=== PATIENT | female | born 1970 | race Caucasian/White ===

== ENCOUNTER 2017-03-03 16:54 | Inpatient (IN) | payer OTHER ==
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
[2017-03-03] MEDS ORDERED: DEXAMETHASONE 10 MG/ML VIAL IVP ONE (17:16)
[2017-03-03] MEDS ORDERED: ONDANSETRON 4 MG/2 ML VIAL IVP ONE ×2 (17:16→19:38)
[2017-03-03 17:52] LABS: % IMMATURE GRANULYOCYTES 0.1 % (0.0-1.1); ABSOLUTE IMMATURE GRANULOCYTES 0.01 10^3/uL (0.00-0.10); ADD DIFF? NO; ADD MORPH? NO; ADD SCAN? NO; ATYPICAL LYMPHOCYTE FLAG 70 (0-99); FRAGMENT RBC FLAG 0 (0-99); HEMATOCRIT 39.8 % (38.0-47.0); HEMOGLOBIN 13.5 g/dL (12.6-16.3); LEFT SHIFT FLG 0 (0-99); LIPEMIA HEMOLYSIS FLAG 90 (0-99); MEAN CELL HEMOGLOBIN 31.8 pg (27.9-34.1); MEAN CELL HEMOGLOBIN CONCENTR. 33.9 g/dL (32.4-36.7); MEAN CELL VOLUME 93.6 fL (81.5-99.8); MEAN PLATELET VOLUME 10.2 fL (8.7-11.7); PLATELET CLUMPS FLAG 0 (0-99); PLATELET COUNT 246 10^3/uL (150-400); RED BLOOD CELL COUNT 4.25 10^6/uL (4.18-5.33); RED CELL DISTRIBUTION WIDTH 12.3 % (11.5-15.2)
[2017-03-03 18:04] LABS: ANION GAP 14 mEq/L (8-16); CALCIUM 8.8 mg/dL (8.5-10.4); CARBON DIOXIDE 25 mEq/l (22-31); CHLORIDE 100 mEq/L (97-110); CREATININE 0.8 mg/dL (0.6-1.0); GLOMERULAR FILTRATION RATE > 60; GLUCOSE 81 mg/dL (70-100); POTASSIUM 3.7 mEq/L (3.5-5.2); SODIUM 139 mEq/L (134-144)
[2017-03-03] MEDS ORDERED: KETOROLAC 30 MG/1 ML SDV IVP ONE (18:24)
[2017-03-03] MEDS ORDERED: fentaNYL 100 MCG/2 ML INJ IVP ONE (19:17)
[2017-03-03] MEDS ORDERED: KETAMINE 100 MG/10 ML SYR IVP ONE (20:47)
[2017-03-03] MEDS ORDERED: METOCLOPRAMIDE 10 MG/2 ML VIAL IVP ONE (20:47)
[2017-03-03] MEDS: HEPARIN/DEXTROSE 500 ML IV ONE ×2 (23:00→23:43)
[2017-03-03] MEDS: HEPARIN 10,000 UNIT/10 ML MDV IVP ONE ×2 (23:00→23:43)
[2017-03-03 23:22] LABS: APTT 21.8 SEC (23.0-38.0); INR 0.93 (0.83-1.16); PROTIME(PATIENT) 12.4 SEC (12.0-15.0)
[2017-03-03] MEDS ORDERED: ONDANSETRON 4 MG/2 ML VIAL IVP PRN (23:27)
[2017-03-03] MEDS ORDERED: diphenhydrAMINE 25 MG CAP PO PRN (23:27)
[2017-03-03] MEDS ORDERED: LORazepam 0.5 MG TAB PO PRN (23:27)
[2017-03-03] MEDS ORDERED: ACETAMINOPHEN 325 MG TAB PO PRN (23:27)
[2017-03-03] MEDS ORDERED: NS 1,000 ML IV SCH (23:30)
[2017-03-03] MEDS ORDERED: HEPARIN 10,000 UNIT/10 ML MDV IVP ONE (23:31)
[2017-03-03] MEDS ORDERED: HEPARIN 10,000 UNIT/10 ML MDV IVP PRN (23:31)
[2017-03-03] MEDS ORDERED: HEPARIN/DEXTROSE 500 ML IV SCH (23:45)
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
[2017-03-04] MEDS: HYDROCODONE/APAP 5/325 TAB PO PRN ×2 (05:14→09:05)
[2017-03-04] MEDS ORDERED: LEVOTHYROXINE 75 MCG TAB PO SCH ×2 (06:00→09:15)
[2017-03-04 07:25] LABS: % IMMATURE GRANULYOCYTES 0.3 % (0.0-1.1); ABSOLUTE IMMATURE GRANULOCYTES 0.03 10^3/uL (0.00-0.10); ADD DIFF? NO; ADD MORPH? NO; ADD SCAN? NO; ATYPICAL LYMPHOCYTE FLAG 30 (0-99); FRAGMENT RBC FLAG 0 (0-99); HEMATOCRIT 36.4 % (38.0-47.0); HEMOGLOBIN 12.7 g/dL (12.6-16.3); LEFT SHIFT FLG 0 (0-99); LIPEMIA HEMOLYSIS FLAG 90 (0-99); MEAN CELL HEMOGLOBIN 32.4 pg (27.9-34.1); MEAN CELL HEMOGLOBIN CONCENTR. 34.9 g/dL (32.4-36.7); MEAN CELL VOLUME 92.9 fL (81.5-99.8); MEAN PLATELET VOLUME 10.2 fL (8.7-11.7); PLATELET CLUMPS FLAG 0 (0-99); PLATELET COUNT 227 10^3/uL (150-400); RED BLOOD CELL COUNT 3.92 10^6/uL (4.18-5.33); RED CELL DISTRIBUTION WIDTH 12.2 % (11.5-15.2)
[2017-03-04 07:40] LABS: INR 1.06 (0.83-1.16); PROTIME(PATIENT) 13.7 SEC (12.0-15.0)
[2017-03-04 07:42] LABS: APTT 80.2 SEC (23.0-38.0)
[2017-03-04 08:05] LABS: ANION GAP 11 mEq/L (8-16); CALCIUM 8.5 mg/dL (8.5-10.4); CARBON DIOXIDE 20 mEq/l (22-31); CHLORIDE 105 mEq/L (97-110); CREATININE 0.7 mg/dL (0.6-1.0); GLOMERULAR FILTRATION RATE > 60; GLUCOSE 108 mg/dL (70-100); POTASSIUM 4.1 mEq/L (3.5-5.2); SODIUM 136 mEq/L (134-144)
--- NOTE | 2017-03-04 08:42 | NEUSURGPN ---
Assessment/Plan: 47 yr old with increase of headaches x2 weeks, possible sagittal and transverse sinus thrombosis Plan: Please see full dictated consult when available Getting MRI brain with SWI sequence to eval for clots If MRI suggestive of clots-symptoms worsen, may consider endovascular treatment options Neurology consulted by Medicine, we will defer all anticoag therapy to neurology Neurosurgery will sign off, we are happy to see again pending MRI findings and/ or worsening symptoms Dr Wilkinson saw patient this am at 0720 Subjective: Patient has headache Objective: AxO x3 PERRLA EOMI CN 2-12 grossly intact No droop 5/5 BUE, BLE Sensation intact to light touch BLE Neuro Check Frequency: per routine Urinary Catheter in Place: No - Physician Discussed Patient with Dr.: Wilkinson Patient Seen by : Jaja Neurosurgery Physical Exam - Vitals, I&O, Labs I and O 03/03/17 03/04/17 03/05/17 05:59 05:59 05:59 Weight 87.9 kg 87.9 kg Other: Intake Quantity Yes Sufficient Vital Signs Temp Pulse Resp BP Pulse Ox 36.7 C 61 12 94/56 L 96 03/04/17 07:38 03/04/17 07:38 03/04/17 07:38 03/04/17 07:38 03/04/17 07:38 Laboratory Results 03/04/17 07:15 03/04/17 07:15 ICD10 Worksheet Patient Problems: Problems Problem Status Onset Thrombosis, superior sagittal sinus Acute
[2017-03-04] MEDS ORDERED: TRIAMCINOLONE ACETONIDE NS SCH (09:15)
[2017-03-04] MEDS ORDERED: NON-FORMULARY NEW DRUG (Fexofenadine Hcl [Allegra Allergy] 60 MG) PO SCH (09:15)
[2017-03-04 10:31] LABS: HEMATOCRIT 36.6 % (38.0-47.0)
[2017-03-04] MEDS ORDERED: KETAMINE 500 MG/10 ML VIAL IVP ONE (11:05)
[2017-03-04] MEDS ORDERED: METOCLOPRAMIDE 10 MG/2 ML VIAL IVP ONE (11:05)
--- NOTE | 2017-03-04 11:10 | PDDCSUM ---
Discharge Summary Discharge Summary: DISCHARGE SUMMARY FOLLOW-UP ITEMS: Neuro interventional radiology consultation upon arrival at [facility] Hypercoagulable labs pending at time of discharge DATE OF ADMISSION: 03/03/2017 DATE OF DISCHARGE: 03/04/2017 DISCHARGE DIAGNOSES: 1. Acute superior sagittal thrombosis 2. Acute headache CONSULTATIONS: Neurology, Neurosurgery PROCEDURES / IMAGING: MRA demonstrating superior sagittal thrombosis, MRI results officially pending at time of discharge CHIEF COMPLAINT: Acute headache SUBJECTIVE: Patient continues to experience acute headache PHYSICAL EXAM ON DISCHARGE: Systolic blood pressure 110, heart rate 60, afebrile overnight, satting on room air, alert awake oriented x3, severe amount of ongoing pain, CN 2 through 12 are intact and tested, motor strength 5/5 bilateral upper and lower extremities , sensation intact bilateral upper and lower extremities, heart rhythm and rate are regular, lungs are clear to auscultation bilaterally, bowel sounds are hypoactive LABS ON DISCHARGE: Creatinine 0.7, potassium 4.1, white blood cell count 9200, hemoglobin 12.7, platelets [id number], flu PCR negative HOSPITAL COURSE BY PROBLEM: The patient presented with acute severe headache in the setting of acute superior sagittal thrombosis, which is the most likely cause of her pain. The patient was immediately seen in consultation by Neurosurgery and they did not recommend an open neurosurgical intervention at this time, but they did agree with stabilizing the patient on heparin drip, considering neuro interventional approach if neurology felt this may be of additional benefit. They also recommended an MRI, which has been performed but the official read is pending at the time of this dictation. The patient was also seen urgently by Neurology , and Dr. Emmett Rick determined that the patient warranted consideration of neuro radiology interventional consultation and possible thrombectomy, and the patient is unsafe to remain at our facility given the possibility of bleeding while on heparin, and limited therapeutic interventions available to us at this time. Consequently, Dr. Emmett Rick arranged admission to the neuro intensive care unit at [facility], and the patient will be emergently transported at this time. She will remain on a heparin drip, and she is currently stable on 28.1 mL/hr,, 1406 units/hour, and will remain on this trip during transport. The only medications which have been modestly effective to control her head pain are a combination of Reglan, Benadryl, ketamine, and she will be administered dose at this time, and recommend that this be continued until the underlying cause is more effectively treated. DISCHARGE MEDICATIONS: Please see official discharge medication reconciliation sheet in chart , continue home medications and the addition of normal saline continuous infusion , heparin drip continuous infusion, ketamine 5 mg q.6 hours IV as needed, Benadryl 50 mg q.6 hours IV as needed, Reglan 10 mg q.6 hours IV as needed. TIME SPENT: Greater than 45 minutes of critical care time were spent on direct patient care , as well as discharge planning and preparation, at bedside w/ patient and , coordinating with Dr. Rick. Patient remains critically ill from the above issue, and will be transferred to the Neuro ICU at [facility] at this time. She meets all inpatient criteria for Inpatient admission, from the time of presentation through the time of transfer.
[2017-03-04 11:33] VITALS: BP 114/72; PULSE 67; RESP 14; TEMP 98.2; O2SAT 97
[2017-03-04] MEDS ORDERED: KETAMINE 100 MG/10 ML SYR IVP ONE ×2 (11:45→12:30)
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
--- NOTE | 2017-03-04 13:26 | GCON ---
[f rep st] CONSULTATION NEUROLOGY CONSULT REFERRING PHYSICIAN: Kellee Sweet MD CHIEF COMPLAINT: Superior sagittal sinus thrombosis. HISTORY OF PRESENT ILLNESS: The patient is a very pleasant 47-year-old lady who has a history of episodic migraine. There is no family history of thrombophilia. She does not smoke, nor is she on oral contraceptives. She has had 2 weeks of a different kind of headache that has been constant and progressive. This is unusual for her. Because of these symptoms, she came to the emergency department last evening. The headache had been going on for 2 weeks and was a bandlike feeling across her head, moderate in severity. She denied any focal neurologic symptoms with the headache. She had a head CT and then a followup MRA brain in the emergency department. The MRA brain reported superior sagittal sinus thrombosis, specifically, near the vertex of the brain; filling defects were noted and posteriorly, this signal was reported to be completely absent. There was also minimal signal noted in the right transverse sinus. The interpretation was a superior sagittal sinus thrombosis with possible extension into the right transverse sinus. She was started on a heparin drip and admitted without further decompensation; specifically, no evolution of focal neurologic symptoms. She then had a followup MRI brain this morning, I reviewed the images myself. The diffusion-weighted images did not show any acute infarct. She did develop nausea, however, later in the morning. PAST MEDICAL HISTORY, SOCIAL HISTORY, FAMILY HISTORY: Please refer to Dr. Sweet 's History and Physical. REVIEW OF SYSTEMS: Only pertinent to the HPI. PHYSICAL EXAM: VITAL SIGNS: Blood pressure 114/72, temperature 36.8, respirations 14, O2 sats 97%. GENERAL: The patient was in some distress, as I had seen her as soon as she got back from the MRI and she was actively vomiting. She appeared uncomfortable. She reported being nauseated and having head pain. HIGHER MENTAL FUNCTION: She is awake and alert. No aphasia. CRANIAL NERVES: Her face is symmetric. Extraocular movements are full. MOTOR : No convulsive activity or myoclonus. This was a brief, abbreviated exam. IMPRESSION AND PLAN: 1. 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 I discussed the initial MRI report at length with the patient and her , and together, we decided to transfer to [facility] for further vascular evaluation and treatment. She may be a candidate for a clot retrieval procedure, and certainly could benefit from intensive monitoring in the neuro ICU in case she has any decompensation. After I had seen the patient and made plans for the transfer, I noted the followup MRI brain is now reporting possible small size sinuses rather than a thrombosis. However, their interpretation was not definitive as they recommended followup CT venogram. We will send all of this information and images along with the patient to [facility] for further consideration of her underlying definitive diagnosis and treatment options. She has been on a heparin drip without problems. This certainly can be continued for the time being, and reassessed once she is evaluated at [facility]. Thank you for this consultation. seventy minutes floor time today in reviewing the patient's records, speaking with the patient's and in direct counseling with the patient along with coordination of care in regard to arranging the transfer. /[id number]/MODL MTDD
--- NOTE | 2017-03-04 14:21 | ASMTCMCOM ---
CM Note CM Note Notes: Pt to [facility] to [facility] neuro ICU room 4708. Stretcher transport scheduled for 12:30. RN July to call report [phone]. Contact at [facility] is Myrna [phone] F:[phone]. Date Signed: 03/04/2017 02:20 PM Electronically Signed By:RACHID Tomas
--- NOTE | 2017-03-04 14:21 | ASDISCHSUM ---
Discharge Information Plan Status:Acute Transfer Medically Cleared to Leave: Discharge Date:03/04/2017 01:44 PM CM D/C Disposition:[facility] ADT D/C Disposition:[facility] Projected Discharge Date:03/04/2017 01:44 PM Transportation at D/C:ALS/BLS Discharge Delay Reason: Follow-Up Date:03/04/2017 01:44 PM Discharge Slot: Final Diagnosis: Placement Information Patient Contact Information Contact Name:KESHIA Relationship: Address:[address] Work Phone: City:[facility] Phone: State/Zip Code:[place] [address] Email: Financial Information Financial Class:HMO and PPO Plans Primary Plan Desc:[employer] Primary Plan Number:[id number] Secondary Plan Desc: Secondary Plan Number: Assessment Information [facility] CM Progress Note CM Note CM Note Notes: Pt to [facility] to [facility] neuro ICU room [facility]. Stretcher transport scheduled for 12:30. RN July to call report [phone]. Contact at [facility] is Myrna [phone] F:[phone]. Date Signed: 03/04/2017 02:20 PM Electronically Signed By:RACHID Tomas Intervention Information
--- NOTE | 2017-03-04 17:52 | PDMN ---
Medical Necessity Medical necessity: Patient meets INPT criteria per physician note and [facility] (patient presents with a constant, progressive acute HERRERA. MRA shows superior sagittal sinus thrombosis; started on heparin IV gtt; LOS will be > 2 midnights for ongoing care, including transfer to for neuro interventional radiology consult and possible thrombectomy.
[2017-03-05] MEDS ORDERED: CETIRIZINE 10 MG TAB PO SCH (09:00)
[2017-03-05 13:40] LABS: PROTEIN C ACTIVITY 137 % (70 - 150)
[2017-03-07 11:39] LABS: PROTEIN S ACTIVITY 114 % (50 - 160)
[2017-03-07 19:14] LABS: INTERPRETATION See Comments
== END 2017-03-04 13:44 | disposition short-term general hospital (02) | DRG 93 ==
LOC: CED 16:54 → F3N 23:30 → OBSVTOIN 03-04 11:05
PROVIDERS: ADMIT Family Medicine; ATTEND Family Medicine
DX: I67.6 Nonpyogenic thrombosis of intracranial venous system (principal); E03.9 Hypothyroidism, unspecified; R21 Rash and other nonspecific skin eruption; Z87.820 Personal history of traumatic brain injury
CPT/HCPCS: 70450-PO; 80048-PO; 84703-PO; 85025-PO; 85300-90; 85303-90; 85306-90; 85520-90; 86147-90; 96374; J1100; J1200; J1644; J1885; J2405; J2765; J3010